=== PATIENT | female | born 1950 | race Caucasian/White ===

== ENCOUNTER 2023-06-20 06:00 | Day surgery (SDC) | payer MEDICAID ==
[2023-06-20] MEDS ORDERED: MEPERIDINE 100 MG INJ. 100 MG/ML VIAL ONE (07:15)
[2023-06-20] MEDS ORDERED: MIDAZOLAM HCL 5 MG/5 ML VIAL ONE (07:16)
[2023-06-20] MEDS ORDERED: fentaNYL CITRATE/PF 100 MCG/2 ML AMP ONE (08:25)
[2023-06-20 12:04] VITALS: O2SAT 96
[2023-06-20 12:54] VITALS: BP_SYST 145; PULSE 66; RESP 17
== END 2023-06-20 10:00 | disposition home or self-care (01) ==
LOC: SMU 06:00 → SDS 06:00
PROVIDERS: ATTEND Internal Medicine
DX: R19.7 Diarrhea, unspecified (principal); D12.3 Benign neoplasm of transverse colon; K57.30 Diverticulosis of large intestine without perforation or abscess without bleeding; K64.8 Other hemorrhoids; I10 Essential (primary) hypertension; F31.9 Bipolar disorder, unspecified; Z79.899 Other long term (current) drug therapy; M19.90 Unspecified osteoarthritis, unspecified site; Z80.0 Family history of malignant neoplasm of digestive organs
CPT/HCPCS: 45380; 45385; 99152; 88305; G0378; J2250; J3010; 45382; 45384; J2175